=== PATIENT | male | born 1955 | race Caucasian/White ===

== ENCOUNTER 2021-11-02 09:36 | Inpatient (IN) | payer OTHER ==
[~2021-11-02] VITALS: Ht 172.7 cm; Wt 79.8 kg
--- NOTE | 2021-11-02 09:45 | NUR ---
[id number] FROM [facility] FOR GEN BODY RASH, DESATURATION AT 88%, HYPOTENSION 80/50. LAST VANCO GIVEN 10/28/21. 0.5MG EPI AND 50 MG BENADRYL GIVEN AT THE SCENE PER REPORT THE PATIENT HAD GEN BODY RASH SINCE 10/28/21. THE PATIENT IS ATTACHED TO THE MONITOR. THE PATIENT IS ON OXYGEN AT 4L/MIN VIA NASAL CANNULA AND SATURATION LEVEL IS AT 94%. RESPIRATION REGULAR AND UNLABORED. THE PATIENT IS ATTACHED TO THE MONITOR. WARM BLANKET PROVIDED FOR COMFORT. WILL CONTINUE TO MONITOR THE PATIENT.
--- NOTE | 2021-11-02 09:55 | NUR ---
COVID SWAB COLLECTED AND SENT TO LAB
[2021-11-02] MEDS ORDERED: methylPREDNISolone SOD SUCC 125 MG/2ML VIAL ONE (09:57)
--- NOTE | 2021-11-02 09:57 | NUR ---
DIRECTOR MBA AT THE BEDSIDE
--- NOTE | 2021-11-02 09:58 | NUR ---
PT W/ EXISTING JHOANA PICC LINE, INTACT AND PATENT. BLOOD DRAWN AND SENT TO LAB.
[2021-11-02] MEDS ORDERED: methylPREDNISolone SOD SUCC 125 MG/2ML VIAL IV ONE (10:00)
[2021-11-02] MEDS ORDERED: IV NS 0.9% 1,000 ML BAG IV ONE (10:00)
[2021-11-02] MEDS ORDERED: IV NS 0.9% 1,000 ML IV ONE (10:00)
[2021-11-02] MEDS ORDERED: CEFTRIAXONE 2 G in IV D5W 50 ML IV ONE (10:00)
--- NOTE | 2021-11-02 10:15 | NUR ---
MOVE SHEET SUBMITTED.
--- NOTE | 2021-11-02 10:15 | NUR ---
URINE SAMPLE COLLECTED AND SENT TO LAB
[2021-11-02 10:16] LABS: BASOPHILS % (AUTO) 0.3 % (0.0-2.0); EOSINOPHILS % (AUTO) 6.3 % (0.0-6.0); HEMATOCRIT 39 % (39-51); HEMOGLOBIN 12.5 g/dL (13.5-17.5); LYMPHOCYTES # (AUTO) 3.3 K/uL (0.8-4.8); LYMPHOCYTES % (AUTO) 22.3 % (20.0-44.0); MEAN CORPUSCULAR HGB CONC 32 g/dl (31.0-36.0); MEAN CORPUSCULAR VOLUME 80 fL (80-96); MONOCYTES # (AUTO) 0.8 K/uL (0.1-1.30); MONOCYTES % (AUTO) 5.4 % (2.0-12.0); NEUTROPHILS # (AUTO) 9.8 K/uL (1.8-8.9); NEUTROPHILS % (AUTO) 65.7 % (43.0-81.0); PLATELET COUNT (AUTO) 153 K/uL (150-450); RED BLOOD CELL COUNT(AUTO) 4.91 MIL/uL (4.5-6.0); WHITE BLOOD COUNT (AUTO) 14.9 K/uL (4.3-11.0)
--- NOTE | 2021-11-02 10:31 | NUR ---
THE PATIENT IS TAKEN TO CT [facility]IA [facility]
[2021-11-02] MEDS ORDERED: BISA10SU11 RC (10:41)
[2021-11-02] MEDS ORDERED: POTA20TA83 PO (10:41)
[2021-11-02] MEDS ORDERED: MAGN400O6 PO (10:41)
[2021-11-02] MEDS ORDERED: FAMO20TA8 PO (10:41)
[2021-11-02] MEDS ORDERED: ACET-868 PO (10:41)
[2021-11-02] MEDS ORDERED: LACT10SO3 PO (10:41)
[2021-11-02] MEDS ORDERED: [UNRECOGNIZED DRUG - CODE] IV (10:41)
[2021-11-02] MEDS ORDERED: SENN-261 PO (10:41)
[2021-11-02] MEDS ORDERED: RIFA300C4 PO (10:41)
[2021-11-02] MEDS ORDERED: NA P133E RC (10:41)
[2021-11-02] MEDS ORDERED: ACET-2605 PO (10:41)
[2021-11-02] MEDS ORDERED: DIPH25CA83 PO (10:41)
[2021-11-02] MEDS ORDERED: DOCU-141 PO (10:41)
--- NOTE | 2021-11-02 10:56 | NUR ---
THE PATIENT IS BACK FROM CT VIA [facility]
[2021-11-02 11:13] LABS: BILIRUBIN,URINE SMALL (NEGATIVE); COLOR,URINE DARK YELLOW (YELLOW); LEUKOCYTE ESTERASE ,URINE NEGATIVE (NEGATIVE); NITRITE, URINE NEGATIVE (NEGATIVE); PROTEIN,URINE 100 mg/dl (NEGATIVE); UGLUCOSE NEGATIVE (NEGATIVE); UROBILINOGEN,URINE 0.2 EU/dL (0.2)
[2021-11-02 11:16] LABS: ALANINE AMINOTRANSFERASE 46 U/L (12-78); ALBUMIN 1.8 g/dL (3.4-5.0); ALKALINE PHOSPHATASE 50 U/L (46-116); ASPARTATE AMINOTRANSFERASE 42 U/L (15-37); BILIRUBIN,DIRECT 0.1 mg/dL (0.0-0.2); BILIRUBIN,TOTAL 0.3 mg/dL (0.2-1.0); CALCIUM, SERUM 7.9 mg/dL (8.5-10.1); CARBON DIOXIDE 27 mmol/L (21-32); CHLORIDE 121 mmol/L (98-107); GLUCOSE 141 mg/dL (74-106); TOTAL PROTEIN, SERUM 5.3 g/dL (6.4-8.2); UREA NITROGEN, BLOOD 41 mg/dL (7-18)
[2021-11-02 11:19] LABS: POTASSIUM 2.4 mmol/L (3.5-5.1); SODIUM SERUM 159 mmol/L (136-145)
[2021-11-02 11:24] LABS: BACTERIA,URINE Rare /HPF (None Seen); SQUAMOUS EPITHELIAL CELL,UR Few /HPF (None Seen)
--- NOTE | 2021-11-02 11:44 | NUR ---
CONTACTED DR. KRISHNAMURTHY
[2021-11-02] MEDS ORDERED: POTASSIUM CL. PREMIX PERIPHER. 100 ML ONE (12:00)
[2021-11-02] MEDS: POTASSIUM CL. PREMIX PERIPHER. 50 ML IV SCH ×2 (12:10→13:11)
--- NOTE | 2021-11-02 12:22 | NUR ---
CALLED [facility] [phone] [facility] SUP NO BEDS AVAILABLE.
--- NOTE | 2021-11-02 12:23 | NUR ---
SISTER SERGO HARRELLDERIK [phone]
[2021-11-02] MEDS ORDERED: ACETAMINOPHEN 650 MG/SUPP.RECT RC ONE ×2 (13:30→13:58)
--- NOTE | 2021-11-02 17:23 | NUR ---
ROOM [id number]
--- NOTE | 2021-11-02 17:46 | NUR ---
SEEN BY KYLAH CORTEZ
[2021-11-02] MEDS ORDERED: ACETAMINOPHEN 325 MG TABLET PO PRN ×2 (18:00→19:15)
[2021-11-02] MEDS ORDERED: ONDANSETRON HCL/PF 4 MG/2 ML VIAL IVP PRN ×2 (18:00→19:15)
[2021-11-02] MEDS ORDERED: MORPHINE SULFATE INJ 2 MG/ML DISP.SYRIN IV PRN ×2 (18:00→19:15)
[2021-11-02] MEDS ORDERED: Magnesium 1GM/D5W 100ML PREMIX 100 ML IV SCH ×3 (18:00→22:00)
[2021-11-02] MEDS ORDERED: BISACODYL SUPP (10 MG) 10 MG/SUPP.RECT SUPP.RECT RC PRN ×2 (18:00→19:15)
[2021-11-02] MEDS ORDERED: HEPARIN SODIUM, PORCINE 5000 UNITS/1 ML VIAL SQ SCH (18:00)
[2021-11-02] MEDS ORDERED: Z GUARD REMEDY 4 OZ OINT TP PRN ×2 (18:00→19:15)
[2021-11-02] MEDS ORDERED: IV D5W 1,000 ML IV PRN (18:00)
[2021-11-02] MEDS ORDERED: POTASSIUM CL. PREMIX PERIPHER. 50 ML IV SCH ×2 (18:00→19:15)
[2021-11-02] MEDS ORDERED: diphenhydrAMINE HCL 25 MG CAPSULE PO PRN (18:00)
--- NOTE | 2021-11-02 18:15 | NUR ---
REPORT GIVEN TO NURSE CASSY FOR DAWNA
[2021-11-02 20:00] VITALS: BP 144/58
[2021-11-02] MEDS ORDERED: RIFAMPIN 300 MG CAPSULE PO SCH ×2 (21:00)
[2021-11-02] MEDS: IV D5W 1,000 ML IV PRN (21:33)
[2021-11-02] MEDS: HEPARIN SODIUM, PORCINE 5000 UNITS/1 ML VIAL SQ SCH (21:41)
[2021-11-02] MEDS ORDERED: LINEZOLID RTU BAG 300 ML IV ONE (22:01)
[2021-11-02] MEDS: LINEZOLID RTU BAG 600 MG in PREMIX 1 EA IV SCH (22:37)
--- NOTE | 2021-11-02 22:40 | NUR ---
CALIBRATION LABORATORY TECHNICIAN NOTE UNABLE TO GIVE LINEZOLID BECAUSE IT WASN'T AVAILABLE ON FLOOR. SENT ORDER TO NURSING SOUND RECORDIST TO OBTAIN MED
[2021-11-02 23:55] VITALS: BP 108/72
--- NOTE | 2021-11-03 00:16 | NUR ---
GLOBAL ACCOUNT MANAGER NOTE CALLED PHARMACY TO CHANGE SCHEDULE FOR POTASSIUM, UNABLE TO GIVE D/T ANTIBIOTICS INFUSING. ALSO NEED TO GIVE MAGNESIUM, PER PHARMACY MAGNESIUM AND POTASSIUM ARE COMPATIBLE
[2021-11-03] MEDS: POTASSIUM CL. PREMIX PERIPHER. 50 ML IV SCH ×7 (00:47→09:26)
[2021-11-03 03:45] VITALS: BP 123/71
[2021-11-03] MEDS ORDERED: PANTOPRAZOLE 40 MG TABLET.DR PO SCH (07:30)
--- NOTE | 2021-11-03 07:52 | NUR ---
ASSISTANT MEDIA PLANNER CLOSING NOTE PATIENT IN BED WITH EYES OPEN, PATIENT ALERT TO NAME ONLY, DELAYED SPEECH, ABLE TO ANSWER SOME QUESTIONS. PATIENT STABLE ON 2L OF OXYGEN VIA NASAL CANNULA, NO S/S OF DISTRESS OR SOB NOTED, BREATHING EVEN AND UNLABORED. PATIENT ON EXTERNAL CRM FUNCTIONAL ANALYST READING SINUS TACHY WITH PAC'S AND PVC'S, HR: 102. PATIENT ARRIVED WITH REDNESS/RASH ON CHEST, BILATERAL ARMS, BACK AND BUTTOCKS, LEFT KNEE BRUISE, RIGHT HEEL REDNESS, PHOTOS TAKEN AND PLACED IN CHART. BELONGINGS CHARTED. 1 BAG OF MAGNESIUM ADMINISTERED ORDERED, 7 BAGS OF POTASSIUM ADMINISTERED, 1 MORE BAG LEFT TO INFUSE. FENG CATHETER INSERTED, 2 BAGS OF TAP WATER ENEMAS ADMINISTERED WITH LITTLE BM OUTPUT. BILATERAL SOFT WRIST RESTRAINTS IN PLACE D/T PATIENT TRYING TO PULL ON LINES. MEDICATIONS GIVEN ORDERED, PT NEEDS MET THROUGHOUT SHIFT. SAFETY MEASURES IN PLACE: CALL LIGHT WITHIN REACH, SIDE RAILS UP X 3, BED LOCKED IN LOWEST POSITION, BED ALARM ON. ENDORSED TO DAY SHIFT NURSE FOR CONTINUITY OF CARE
[2021-11-03 08:00] VITALS: BP 108/64
[2021-11-03] MEDS: HEPARIN SODIUM, PORCINE 5000 UNITS/1 ML VIAL SQ SCH ×2 (08:46→18:23)
[2021-11-03] MEDS: PANTOPRAZOLE 40 MG TABLET.DR PO SCH (08:47)
[2021-11-03] MEDS: LORATADINE 10 MG TABLET PO SCH (08:47)
[2021-11-03] MEDS: LACTULOSE 10 G/15 ML UDC (PYXIS) PO SCH (08:48)
[2021-11-03] MEDS ORDERED: DOCUSATE SODIUM 100 MG CAPSULE PO SCH (09:00)
[2021-11-03] MEDS ORDERED: LACTULOSE 10 G/15 ML UDC (PYXIS) PO SCH (09:00)
[2021-11-03] MEDS: DOCUSATE SODIUM 100 MG CAPSULE PO SCH (09:03)
[2021-11-03] MEDS: LINEZOLID RTU BAG 600 MG in PREMIX 1 EA IV SCH ×2 (09:16→21:44)
--- NOTE | 2021-11-03 09:26 | NUR ---
WOUND CARE CONSULT: PT PRESENTS WITH AREAS OF REDNESS/RASH ALL OVER BODY, PRESENT ON ADMISSION. PT INCONTINENT OF SMALL AMOUNT LOOSE STOOL. DISCUSSED SKIN PROTECTION WITH NURSING STAFF. DEFER TO PMD FOR SKIN CONDITION. MD IN AGREEMENT WITH PLAN OF CARE. Addendum: 11/03/21 at 0929 by CRISTOFER HU WNDNU PT IS ON [facility] LOW AIRLOSS BED.
[2021-11-03] MEDS ORDERED: LORAZEPAM INJ 2 MG/ML VIAL IV ONE (10:00)
[2021-11-03] MEDS ORDERED: NA PHOS,M-B/NA PHOS,DI-BA 1 EA ENEMA RC ONE (10:30)
--- NOTE | 2021-11-03 10:43 | NUR ---
[facility] ) called them to verify Covid vaccine information, States patient unable to provide and no family to asked for vaccine status
[2021-11-03 10:45] LABS: BASOPHILS % (AUTO) 0.4 % (0.0-2.0); EOSINOPHILS % (AUTO) 9.5 % (0.0-6.0); HEMATOCRIT 36 % (39-51); HEMOGLOBIN 11.4 g/dL (13.5-17.5); LYMPHOCYTES # (AUTO) 2.1 K/uL (0.8-4.8); LYMPHOCYTES % (AUTO) 17.4 % (20.0-44.0); MEAN CORPUSCULAR HGB CONC 32 g/dl (31.0-36.0); MEAN CORPUSCULAR VOLUME 79 fL (80-96); MONOCYTES # (AUTO) 0.7 K/uL (0.1-1.30); MONOCYTES % (AUTO) 5.9 % (2.0-12.0); NEUTROPHILS % (AUTO) 66.8 % (43.0-81.0); PLATELET COUNT (AUTO) 124 K/uL (150-450)
[2021-11-03 10:53] LABS: CALCIUM, SERUM 7.7 mg/dL (8.5-10.1); CREATININE 1.6 mg/dL (0.6-1.3)
[2021-11-03] MEDS ORDERED: LORAZEPAM INJ 2 MG/ML VIAL IV PRN (11:00)
[2021-11-03 12:00] VITALS: BP 127/76
--- NOTE | 2021-11-03 13:15 | NUR ---
RN NOTES MRI CALLED THAT THE PATIENT CALLED OUT, ATIVAN 1 MG WASN'T EFFECTIVE. CONTACTED KYLAH CORTEZ AND HE ORDERED 2.5 MG HALDOL INSTEAD AND TRY MRI AGAIN.
[2021-11-03] MEDS: diphenhydrAMINE HCL 25 MG CAPSULE PO PRN (15:26)
[2021-11-03] MEDS ORDERED: HALOPERIDOL LACTATE INJ 5 MG/ML VIAL IVP PRN (15:30)
[2021-11-03 16:00] VITALS: BP 118/65
[2021-11-03] MEDS: ENSURE ENLIVE 237 ML LIQUID (VANILLA) PO SCH (17:49)
--- NOTE | 2021-11-03 18:00 | NUR ---
RN NOTES MRI OF THE HEAD WAS SUCCESSFULLY DONE WITH PATIENT GIVEN HALDOL 2.5 MG AT 1645.
--- NOTE | 2021-11-03 18:38 | NUR ---
NATIONAL ACCOUNT EXECUTIVE OPENING NOTE RECEIVED PATIENT IN BED, AOX1-2, DELAYED SPEECH, ABLE TO MAKE NEEDS KNOWN, PATIENT RECEIVING OXYGEN 2LPM VIA NASAL CANNULA WITHOUT NO S/SX OF DISTRESS OR SOB NOTED, LUNG CLEAR. PATIENT ON EXTERNAL COMMUNITY RELATIONS COORDINATOR READING SINUS TACHY WITH PAC'S AND PVC'S WITH HR 105. PATIENT IS NOTED WITH GENERALIZED REDNESS/RASH ON CHEST IN BOTH ARMS, BACK, BOTH LEGS, AND CHEST. WITH JHOANA PICC LINE, PATENT AND NO SIGNS OF INFILTRATION OR INFECTION. PATIENT HAS BILATERAL SOFT WRIST RESTRAINTS IN PLACE D/T PATIENT TRYING TO PULL ON LINES. SAFETY MEASURES IN PLACE: CALL LIGHT WITHIN REACH, SIDE RAILS UP X 3, BED LOCKED IN LOWEST POSITION, BED ALARM ON. WILL CONTINUE TO MONITOR FOR ANY DAWNA. Addendum: 11/03/21 at 1849 by KATHIE MARTINS RN ERRATUM: "NATIONAL ACCOUNT EXECUTIVE OPENING NOTES" @4821
--- NOTE | 2021-11-03 18:56 | NUR ---
RN FACULTY CLOSING NOTE PATIENT IN BED, SLEEPING, S/P MRI OF THE HEAD. OFFERED DINNER BUT PATIENT REFUSED/ DELAYED SPEECH, PATIENT RECEIVING OXYGEN 2LPM VIA NASAL CANNULA WITHOUT NO S/SX OF DISTRESS OR SOB NOTED, LUNGS CLEAR. PATIENT ON EXTERNAL TALENT ENGINEER READING SINUS TACHY WITH HR 105. PATIENT STILL NOTED WITH GENERALIZED REDNESS/RASH ON CHEST IN BOTH ARMS, BACK, BOTH LEGS, AND CHEST. WITH JHOANA PICC LINE, PATENT AND NO SIGNS OF INFILTRATION OR INFECTION. WITH FENG CATHETER DRAINING CLEAR YELLOW URINE. PATIENT STILL HAS BILATERAL SOFT WRIST RESTRAINTS IN PLACE D/T PATIENT TRYING TO PULL ON LINES. SAFETY MEASURES IN PLACE: CALL LIGHT WITHIN REACH, SIDE RAILS UP X 3, BED LOCKED IN LOWEST POSITION, BED ALARM ON. PM CARE DONE. ALL NEEDS MET DURING MY SHIFT. WILL CONTINUE TO MONITOR FOR ANY DAWNA.
--- NOTE | 2021-11-03 19:45 | NUR ---
TREE INSPECTOR OPENING NOTE PATIENT AWAKE IN BED, ALERT/ORIENTED X 1, DELAYED SPEECH. PT STABLE ON 2 LPM OF OXYGEN VIA NASAL CANNULA, NO S/S OF DISTRESS OR SOB NOTED, BREATHING EVEN AND UNLABORED. PATIENT ON EXTERNAL MEDICAL RECORDS ANALYST READING SINUS TACHY, HR: 105. JHOANA PICC LINE INTACT AND INFUSING D5W@ 75 ML/HR. FENG CATHETER IN PLACE AND DRAINING YELLOW URINE. BILATERAL SOFT WRIST RESTRAINTS IN PLACE. SAFETY MEASURES IN PLACE: CALL LIGHT WITHIN REACH, SIDE RAILS UP X 2, BED LOCKED IN LOWEST POSITION, BED ALARM ON. WILL CONTINUE TO MONITOR PATIENT
[2021-11-03 20:00] VITALS: BP 107/71
--- NOTE | 2021-11-03 21:55 | NUR ---
BANKRUPTCY PROCESSOR NOTE PATIENT NOTED WITH TEMP OF 100.3, ICE PACKS AND COOL CLOTHES PLACED ON PATIENT'S BODY. TYLENOL 650 MG PO GIVEN CRUSHED IN APPLE SAUCE. WILL CONTINUE TO MONITOR
[2021-11-03] MEDS: IV D5W 1,000 ML IV PRN (23:19)
[2021-11-04] VITALS: BP 105/65
[2021-11-04 04:00] VITALS: BP 113/76
[2021-11-04] MEDS: HEPARIN SODIUM, PORCINE 5000 UNITS/1 ML VIAL SQ SCH ×2 (06:51→20:05)
--- NOTE | 2021-11-04 07:00 | NUR ---
SUPERVISOR ADVICE CLOSING NOTE PATIENT AWAKE IN BED, ALERT/ORIENTED X 1, DELAYED SPEECH. PT STABLE ON 2 LPM OF OXYGEN VIA NASAL CANNULA, NO S/S OF DISTRESS OR SOB NOTED, BREATHING EVEN AND UNLABORED. PATIENT ON EXTERNAL REPEAT CHIEF READING SINUS RHYTHM WITH PAC'S AND PVC'S, HR: 88. JHOANA PICC LINE INTACT AND INFUSING D5W@ 75 ML/HR. FENG CATHETER IN PLACE AND DRAINING ZEESHAN URINE. BILATERAL SOFT WRIST RESTRAINTS IN PLACE. MEDICATIONS GIVEN ORDERED, PT NEEDS MET THROUGHOUT SHIFT, PATIENT TURNED AND HYGIENE PROVIDED Q2H. SAFETY MEASURES IN PLACE: CALL LIGHT WITHIN REACH, SIDE RAILS UP X 2, BED LOCKED IN LOWEST POSITION, BED ALARM ON. WILL ENDORSE TO DAY SHIFT NURSE FOR CONTINUITY OF CARE
--- NOTE | 2021-11-04 07:30 | NUR ---
CARDIAC CATH TECH NOTES PT IN BED, AWAKE, ALERT AND VERBALLY RESPONSIVE, DENIES PAIN, NOT IN DISTRESS, CALL LIGHT WITHIN REACH, IV FLUIDS INFUSING WELL, KEPT COMFORTABLE IN BED, F/C IN PLACE, DRAINING WELL WITH CLEAR, YELLOW URINE.
[2021-11-04 08:00] VITALS: BP 121/68
[2021-11-04 08:18] LABS: BASOPHILS # (AUTO) 0.1 K/uL (0.0-0.2); BASOPHILS % (AUTO) 0.5 % (0.0-2.0); EOSINOPHILS % (AUTO) 9.3 % (0.0-6.0); HEMATOCRIT 34 % (39-51); HEMOGLOBIN 10.9 g/dL (13.5-17.5); LYMPHOCYTES # (AUTO) 2.7 K/uL (0.8-4.8); LYMPHOCYTES % (AUTO) 23.1 % (20.0-44.0); MEAN CORPUSCULAR HGB CONC 32 g/dl (31.0-36.0); MEAN CORPUSCULAR VOLUME 80 fL (80-96); MONOCYTES % (AUTO) 9.1 % (2.0-12.0); NEUTROPHILS # (AUTO) 6.7 K/uL (1.8-8.9); PLATELET COUNT (AUTO) 120 K/uL (150-450); RED BLOOD CELL COUNT(AUTO) 4.22 MIL/uL (4.5-6.0); WHITE BLOOD COUNT (AUTO) 11.5 K/uL (4.3-11.0)
[2021-11-04] MEDS: DOCUSATE SODIUM 100 MG CAPSULE PO SCH (08:30)
[2021-11-04] MEDS: LINEZOLID RTU BAG 600 MG in PREMIX 1 EA IV SCH ×2 (08:30→20:21)
[2021-11-04] MEDS: LACTULOSE 10 G/15 ML UDC (PYXIS) PO SCH (08:30)
[2021-11-04] MEDS: LORATADINE 10 MG TABLET PO SCH (08:30)
[2021-11-04] MEDS: PANTOPRAZOLE 40 MG TABLET.DR PO SCH (08:33)
[2021-11-04] MEDS: ENSURE ENLIVE 237 ML LIQUID (VANILLA) PO SCH ×2 (08:33→17:05)
[2021-11-04 08:34] LABS: CALCIUM, SERUM 7.8 mg/dL (8.5-10.1); CREATININE 1.3 mg/dL (0.6-1.3)
[2021-11-04 08:41] LABS: POTASSIUM 2.7 mmol/L (3.5-5.1)
--- NOTE | 2021-11-04 10:00 | NUR ---
FINANCIAL ADMINISTRATIVE ASSISTANT NOTES PER SKIN REASSESSMENT, NOTED EXCORIATION AT LEFT BUTTOCK AND RIGHT EAR, NO BLEEDING NOTED, OFFLOADED, MEPILEX PLACED, WILL CONTINUE TO MONITOR, WOUND CARE CONSULT ORDERED.
[2021-11-04] MEDS ORDERED: POTASSIUM CHLORIDE 20 MEQ TAB.PRT.SR PO ONE ×2 (10:30→15:00)
[2021-11-04 12:00] VITALS: BP 112/58
[2021-11-04 16:00] VITALS: BP 100/64
[2021-11-04] MEDS: IV D5W 1,000 ML IV PRN (18:04)
--- NOTE | 2021-11-04 19:00 | NUR ---
CLIENT PROGRAM MANAGER NOTES PT IN BED, AWAKE, ALERT AND VERBALLY RESPONSIVE, NO COMPLAINT OF PAIN OR ANY DISCOMFORT AT THIS TIME, IV FLUIDS INFUSING WELL, PICC LINE AT RIGHT UPPER ARM IN PLACE AND INFUSING WELL, F/C DRAINING WELL, ASSISTED WITH DINNER, PM CARE PROVIDED, ALL NEEDS ATTENDED.
--- NOTE | 2021-11-04 19:20 | NUR ---
GROUP SUPERVISOR YARD OPENING NOTE RECEIVED PATIENT IN BED; AWAKE, ALERT AND ORIENTED X1. ON OXYGEN INHALATION @ 2LPM VIA NASAL CANNULA; TOLERATING WELL. BREATHING EVEN AND UNLABORED. NO SOB NOTED. NO S/S OF DISTRESS NOTED. ON TELEMETRY MONITORING WITH READING OF SINUS RHYTHM WITH PACS AND PVCS. WITH PICC LINE ON RIGHT UPPER ARM INFUSING WITH D5W REGULATED @ 75 ML/HR; PATENT, INTACT AND FLUSHES WELL. WITH FENG CATHETER IN PLACE DRAINING TO YELLOW URINE. WITH BILATERAL SOFT WRIST RESTRAINTS IN PLACE; SKIN CHECKED DONE; WNL. SAFETY MEASURES IMPLEMENTED: CALL LIGHT AND TABLE WITHIN REACH, SIDE RAILS UP X2, BED IN LOWEST LOCKED POSITION. WILL CONTINUE TO MONITOR
[2021-11-04 20:00] VITALS: BP 116/69
[2021-11-04] MEDS: diphenhydrAMINE HCL 25 MG CAPSULE PO PRN (21:10)
--- NOTE | 2021-11-04 21:10 | NUR ---
RN NOTE PRN DIPHENHYDRAMINE HCL 25 MG GIVEN PO ORDERED FOR ALLERGY. WILL CONTINUE TO MONITOR AND REASSESS PT.
[2021-11-05] VITALS (7 sets, daily range): BP systolic 99–118; BP diastolic 65–76
[2021-11-05 06:38] LABS: BASOPHILS # (AUTO) 0.1 K/uL (0.0-0.2); BASOPHILS % (AUTO) 0.5 % (0.0-2.0); EOSINOPHILS % (AUTO) 10.2 % (0.0-6.0); HEMATOCRIT 33 % (39-51); HEMOGLOBIN 10.6 g/dL (13.5-17.5); LYMPHOCYTES # (AUTO) 2.9 K/uL (0.8-4.8); LYMPHOCYTES % (AUTO) 25.2 % (20.0-44.0); MEAN CORPUSCULAR HGB CONC 33 g/dl (31.0-36.0); MEAN CORPUSCULAR VOLUME 79 fL (80-96); MONOCYTES # (AUTO) 1.2 K/uL (0.1-1.30); MONOCYTES % (AUTO) 10.3 % (2.0-12.0); NEUTROPHILS # (AUTO) 6.1 K/uL (1.8-8.9); NEUTROPHILS % (AUTO) 53.8 % (43.0-81.0); PLATELET COUNT (AUTO) 130 K/uL (150-450); RED BLOOD CELL COUNT(AUTO) 4.14 MIL/uL (4.5-6.0); WHITE BLOOD COUNT (AUTO) 11.4 K/uL (4.3-11.0)
[2021-11-05 06:56] LABS: CALCIUM, SERUM 7.8 mg/dL (8.5-10.1); CREATININE 1.2 mg/dL (0.6-1.3); PHOSPHORUS 3.1 mg/dL (2.5-4.9)
--- NOTE | 2021-11-05 06:58 | NUR ---
MATCHBOOK ASSEMBLER CLOSING NOTE PATIENT IN BED; AWAKE, A/O X1. ON O2 INHALATION @ 2LPM VIA NASAL CANNULA; TOLERATING WELL. BREATHING EVEN AND UNLABORED. IN NO ACUTE DISTRESS NOTED. ON TELEMETRY MONITORING WITH READING OF SINUS RHYTHM WITH PACS AND PVCS HR-91 BPM. WITH RIGHT UPPER ARM PICC LINE INFUSING WITH D5W REGULATED @ 75 ML/HR; PATENT, INTACT AND FLUSHES WELL. WITH FENG CATHETER IN PLACE DRAINING TO YELLOW URINE. WITH BILATERAL SOFT WRIST RESTRAINTS IN PLACE; SKIN CHECKED DONE; WNL. SAFETY MEASURES MAINTAINED: CALL LIGHT AND TABLE WITHIN REACH, SIDE RAILS UP X2, BED IN LOWEST LOCKED POSITION. ENDORSED TO MORNING SHIFT FOR DAWNA.
[2021-11-05 07:05] LABS: POTASSIUM 2.7 mmol/L (3.5-5.1)
--- NOTE | 2021-11-05 07:30 | NUR ---
RN Opening notes PT AOx2-3, able to express concerns. States no pain. No signs of distress or discomfort. VSS, introduced myself. Made aware of call light and how to reach nurse. All safety precautions taken, call light and table within reach, bed at lowest position. Will continue to monitor and assist throughout shift.
--- NOTE | 2021-11-05 08:34 | NUR ---
WOUND CARE CONSULT: PT SEEN FOR OPEN SKIN ON LEFT BUTTOCK (INCONTINENCE ASSOCIATED) WHICH IS NOT ON A BONY AREA AND ALSO FOR RT EAR EXCORIATION. PT CONTINUES TO PRESENT WITH REDNESS ALL OVER BODY WHICH WAS PRESENT ON ADMISSION. SWELLING NOTE TO RT LOWER LEG. DISCUSSED WITH NURSING STAFF AND TANK WORKER. DEFER TO PMD FOR RT LEG SWELLING. DISCUSSED SKIN PROTECTION WITH NURSING STAFF. MD IN AGREEMENT WITH PLAN OF CARE. PT IS ON [facility] LOW AIRLOSS BED.
[2021-11-05] MEDS: DOCUSATE SODIUM 100 MG CAPSULE PO SCH (08:36)
[2021-11-05] MEDS: LORATADINE 10 MG TABLET PO SCH (08:36)
[2021-11-05] MEDS: PANTOPRAZOLE 40 MG TABLET.DR PO SCH (08:36)
[2021-11-05] MEDS: LACTULOSE 10 G/15 ML UDC (PYXIS) PO SCH (08:36)
[2021-11-05] MEDS: HEPARIN SODIUM, PORCINE 5000 UNITS/1 ML VIAL SQ SCH ×2 (08:38→20:02)
[2021-11-05] MEDS: ENSURE ENLIVE 237 ML LIQUID (VANILLA) PO SCH ×2 (08:39→17:26)
[2021-11-05] MEDS: LINEZOLID RTU BAG 600 MG in PREMIX 1 EA IV SCH ×2 (08:44→20:28)
--- NOTE | 2021-11-05 09:00 | NUR ---
DRUM PULLER NOTES PT SEEN AND ASSESSED BY WOUND CARE NURSE, DR. VILLAGRAN MADE AWARE OF PT'S GENERALIZED RASH AND LOW POTASSIUM LEVEL, ORDERS GIVEN.
--- NOTE | 2021-11-05 09:19 | NUR ---
PATIENT ON 2 L O2 NC. PATIENT FOUND SLEEPING NO SIGN OF DISTRESS NOTED. Addendum: 11/05/21 at 0920 by YUNI BURNETT RT Amended: Links added.
[2021-11-05] MEDS ORDERED: POTASSIUM CHLORIDE 20 MEQ TAB.PRT.SR PO ONE ×3 (09:30→16:00)
[2021-11-05] MEDS: IV D5W 1,000 ML IV PRN (10:18)
[2021-11-05] MEDS: POTASSIUM CL. PREMIX PERIPHER. 50 ML IV SCH ×8 (10:45→19:03)
[2021-11-05 11:05] LABS: EOSINOPHILS % (MANUAL) 6 % (0-4); LYMPHOCYTES % (MANUAL) 25 % (16-48); MONOCYTES % (MANUAL) 5 % (0-11.0); NEUTROPHILS % (MANUAL) 64 (42-76)
--- NOTE | 2021-11-05 11:36 | NUR ---
WORKFORCE PLANNING ANALYST NOTES PT SEEN AND EXAMINED BY DR. VILLAGRAN, ORDERS GIVEN, MD ALSO AWARE OF SWELLING ON PT'S RIGHT LEG, KEPT LEG ELEVATED, KEPT PT COMFORTABLE.
[2021-11-05] MEDS ORDERED: POTASSIUM CL. PREMIX PERIPHER. 50 ML IV SCH (15:00)
--- NOTE | 2021-11-05 15:25 | NUR ---
MICROWAVE TECHNICIAN NOTES CLARIFIED POTASSIUM REPLACEMENT ORDER WITH DR. VILLAGRAN, ANOTHER KCL PO AND IV TO BE GIVEN AND OBTAIN A POTASSIUM LEVEL, TSH AND FREE T4 AFTER, NOTED AND CARRIED OUT, PHARMACY INFORMED.
[2021-11-05] MEDS: cetrizine 10 MG TABLET PO SCH (18:05)
--- NOTE | 2021-11-05 18:37 | NUR ---
GOLF COURSE STARTER NOTES PT IN BED, ASLEEP, EASY TO AROUSE, ALERT AND VERBALLY RESPONSIVE, PM MEDS GIVEN ORDERED, PM CARE PROVIDED, REPOSITIONED FOR COMFORT, F/C DRAINING WELL, IV FLUIDS INFUSING WELL, KEPT WARM AND COMFORTABLE IN BED.
[2021-11-05] MEDS: FLUOCINONIDE 0.05% CREAM 60 GM TUBE TP SCH (19:21)
--- NOTE | 2021-11-05 20:22 | NUR ---
RECEIVED PATIENT IN BED, ALERT AND AWAKE, NO DISTRESS, STABLE ON 2LPM VIA NC, JHOANA PICC LINE PATENT AND SECURED WITH DRESSING, CALM, BILATERAL WRIST RESTRAINTS, NO SKIN BREAKDOWN, FNEG CATHETER FOR URINARY RETENTION, DRAINING CLEAR AND YELLOW URINE. POTASSIUM IV COMPLETED, BMP, TSH FREE T4 AT 2100. KEPT SAFE, WILL CONTINUE TO MONITOR.
[2021-11-05 21:19] LABS: CALCIUM, SERUM 7.5 mg/dL (8.5-10.1); CREATININE 1.2 mg/dL (0.6-1.3); POTASSIUM 3.3 mmol/L (3.5-5.1)
[2021-11-05 21:34] LABS: THYROID STIMULATING HORMONE 1.497 uIU/mL (0.358-3.74)
[2021-11-05] MEDS: POTASSIUM CHLORIDE 10 MEQ/50 ML PREMIXED IVPB FOR PERIPHERAL LINE IV SCH (23:41)
[2021-11-06] VITALS: BP 112/71
[2021-11-06] MEDS: POTASSIUM CHLORIDE 10 MEQ/50 ML PREMIXED IVPB FOR PERIPHERAL LINE IV SCH (00:27)
[2021-11-06 04:00] VITALS: BP 108/66
[2021-11-06] MEDS: IV D5W 1,000 ML IV PRN (06:10)
[2021-11-06] MEDS: HEPARIN SODIUM, PORCINE 5000 UNITS/1 ML VIAL SQ SCH (06:38)
[2021-11-06 06:46] LABS: BASOPHILS # (AUTO) 0.1 K/uL (0.0-0.2); BASOPHILS % (AUTO) 0.6 % (0.0-2.0); EOSINOPHILS % (AUTO) 13.3 % (0.0-6.0); HEMATOCRIT 30 % (39-51); HEMOGLOBIN 9.9 g/dL (13.5-17.5); LYMPHOCYTES # (AUTO) 2.3 K/uL (0.8-4.8); LYMPHOCYTES % (AUTO) 25.9 % (20.0-44.0); MEAN CORPUSCULAR HGB CONC 33 g/dl (31.0-36.0); MEAN CORPUSCULAR VOLUME 80 fL (80-96); MONOCYTES # (AUTO) 0.7 K/uL (0.1-1.30); MONOCYTES % (AUTO) 7.4 % (2.0-12.0); NEUTROPHILS # (AUTO) 4.7 K/uL (1.8-8.9); NEUTROPHILS % (AUTO) 52.8 % (43.0-81.0); PLATELET COUNT (AUTO) 140 K/uL (150-450); RED BLOOD CELL COUNT(AUTO) 3.77 MIL/uL (4.5-6.0); WHITE BLOOD COUNT (AUTO) 8.9 K/uL (4.3-11.0)
--- NOTE | 2021-11-06 06:47 | NUR ---
DX SEPSIS, ALERT/ORIENTED X1, STABLE ON 2LPM VIA NC, NOT IN APPARENT PAIN, AFEBRILE, SR WITH PAC, PVC. JHOANA PICC LINE, FENG CATHETER DRAINING WELL WITH DARK YELLOW URINE. BM X1, GENERALIZED SKIN RASHES FROM VANCOMYCIN REACTION, LIDEX CREAM APPLIED TO CHEST, ARMS AND ABDOMEN. AT 2100, BILATERAL WRIST RESTRAINTS, RENEWED. POTASSIUM LEVEL 3.3, REPLACED WITH KCL 20 MEQ IV X1. MRI WO CONTRAST RESULTED, MUST BE FOLLOWED UP WT DR. KRISHNAMURTHY. MONITOR ELECTROLYTES, AM LABS. ASPIRATION PRECAUTION.
[2021-11-06 07:09] LABS: CALCIUM, SERUM 7.7 mg/dL (8.5-10.1); CREATININE 1.1 mg/dL (0.6-1.3); PHOSPHORUS 3.2 mg/dL (2.5-4.9); POTASSIUM 3.1 mmol/L (3.5-5.1)
--- NOTE | 2021-11-06 07:26 | NUR ---
WAREHOUSE ATTENDANT OPENING NOTE RECEIVED PT ASLEEP IN BED, EASILY AROUSED. A/O X1, REORIENTED PT NEEDED. ON O2 AT 2L/MIN VIA NASAL CANNULA, TOLERATING WELL. NO SOB NOTED. NOT IN ANY SIGN OF RESPIRATORY DISTRESS. ON CARDIAC TELE MONITOR WITH CURRENT READING OF SINUS RHYTHM, HR 74. NO C/O CARDIAC DISTRESS VOICED AT THIS TIME. IV ACCESS IN JHOANA PICCLINE INTACT, AND PATENT WITH D5W INFUSING AT 75ML/HR. SAFETY MEASURES IN PLACE: BED IN LOWEST AND LOCKED POSITION, SIDE RAILS UPX2, BED ALARM ON AND CALL LIGHT WITHIN REACH. WILL CONTINUE TO MONITOR PT.
[2021-11-06] MEDS: PANTOPRAZOLE 40 MG TABLET.DR PO SCH (07:54)
[2021-11-06] MEDS: ENSURE ENLIVE 237 ML LIQUID (VANILLA) PO SCH (08:15)
[2021-11-06 08:26] VITALS: BP 108/58
[2021-11-06] MEDS: LINEZOLID RTU BAG 600 MG in PREMIX 1 EA IV SCH (08:26)
[2021-11-06] MEDS: DOCUSATE SODIUM 100 MG CAPSULE PO SCH (08:26)
[2021-11-06] MEDS: LACTULOSE 10 G/15 ML UDC (PYXIS) PO SCH (08:26)
[2021-11-06] MEDS: cetrizine 10 MG TABLET PO SCH (08:26)
[2021-11-06] MEDS: FLUOCINONIDE 0.05% CREAM 60 GM TUBE TP SCH (09:41)
[2021-11-06 11:30] VITALS: BP 95/63
[2021-11-06] MEDS: POTASSIUM CHLORIDE 20 MEQ POWDER PACKET PO SCH ×2 (12:42→13:58)
[2021-11-06] MEDS ORDERED: FLUO30CR11 TP (14:25)
[2021-11-06] MEDS ORDERED: LINE600I IV (14:25)
[2021-11-06] MEDS ORDERED: CETI10TA14 PO (14:25)
--- NOTE | 2021-11-06 16:30 | NUR ---
FERMENTATION ENGINEER NOTE PT DISCHARGED TO [facility]SING [facility] IN STABLE CONDITION. PT A/O X1, REORIENTED PT NEEDED. ON O2 AT 2L/MIN VIA NASAL CANNULA, TOLERATING WELL WITH SPO2 97%. NO SOB NOTED. NOT IN ANY SIGN OF RESPIRATORY DISTRESS. VITAL SIGNS TAKEN, STABLE, AND RECORDED. PHOTOGRAPHS OF PT'S SKIN ISSUES TAKEN AND FILED IN THE CHART. ALL BELONGINGS ACCOUNTED FOR. IV ACCESS IN JHOANA PICCLINE INTACT AND PATENT AND NOT REMOVED DUE TO PT WILL CONTINUE ANTIBIOTICS IV AT THE [facility]. PT LEFT THE UNIT AT 1615 VIA GURNEY ACCOMPANIED BY 2 CNC SPECIALIST FROM [facility]. DISCHARGED PAPERS HANDED TO [facility]. MD AND CHARGED NURSE AWARE OF DISCHARGED.
== END 2021-11-06 16:30 | DRG 720 ==
LOC: ER 09:39 → TELE 19:32
PROVIDERS: ADMIT Nurse Practitioner Family; ATTEND Nurse Practitioner Acute Care
DX: A41.9 Sepsis, unspecified organism (principal); N17.0 Acute kidney failure with tubular necrosis; G06.0 Intracranial abscess and granuloma; I62.02 Nontraumatic subacute subdural hemorrhage; E43 Unspecified severe protein-calorie malnutrition; E87.2 Acidosis; E87.0 Hyperosmolality and hypernatremia; D63.8 Anemia in other chronic diseases classified elsewhere; E88.09 Other disorders of plasma-protein metabolism, not elsewhere classified; E86.0 Dehydration; Z86.61 Personal history of infections of the central nervous system; K21.9 Gastro-esophageal reflux disease without esophagitis; Z88.1 Allergy status to other antibiotic agents; Z79.899 Other long term (current) drug therapy; Z87.891 Personal history of nicotine dependence; Z98.2 Presence of cerebrospinal fluid drainage device; R65.20 Severe sepsis without septic shock; F12.10 Cannabis abuse, uncomplicated; Z85.841 Personal history of malignant neoplasm of brain; E87.6 Hypokalemia; G91.9 Hydrocephalus, unspecified; G93.89 Other specified disorders of brain; R09.02 Hypoxemia; Z86.14 Personal history of Methicillin resistant Staphylococcus aureus infection; K56.41 Fecal impaction; T36.8X5A Adverse effect of other systemic antibiotics, initial encounter; Y92.129 Unspecified place in nursing home as the place of occurrence of the external cause; N39.0 Urinary tract infection, site not specified; R33.9 Retention of urine, unspecified; Z20.822 Contact with and (suspected) exposure to COVID-19
CPT/HCPCS: 36415; 70450-TC; 70551-TC; 71045-TC; 80048-TC; 80076-TC; 80202-TC; 81001; 83605-TC; 83735-TC; 84100-TC; 84439-TC; 84443-TC; 84484-TC; 85025-TC; 85730-TC; 87040-TC; 87081-TC; 87086-TC; 94799-TC; 95819-TC; A4216; C9803; G0378; J0696; J1630; J1644; J2020; J2060; J2930; J3475; J3480; J7030; J7040; J7060; J7070; Q0163